=== PATIENT | female | born 1965 | race Caucasian/White ===

== ENCOUNTER 2019-08-05 10:53 | Emergency (ER) | payer BC ==
[~2019-08-05] VITALS: Ht 172.7 cm; Wt 70.9 kg
[~2019-08-05 10:53] MED LIST: CIPROFLOXACN500 MG PO; NORCO1 TA1 PO; ULTRAM50 M1 PO; ZOFRAN ODT4 MG PO
[2019-08-05] MEDS ORDERED: SINGULAIR10 MG PO (12:15)
[2019-08-05] MEDS ORDERED: BREO ELLIPTA1 INH INHW/SPAC (12:18)
[2019-08-05 13:46] VITALS: BP 126/88
== END 2019-08-05 13:46 | disposition home or self-care (01) | DRG 563 ==
LOC: ED 10:53
DX: S93.401A Sprain of unspecified ligament of right ankle, initial encounter (principal); W10.9XXA Fall (on) (from) unspecified stairs and steps, initial encounter; Y92.009 Unspecified place in unspecified non-institutional (private) residence as the place of occurrence of the external cause; J44.9 Chronic obstructive pulmonary disease, unspecified

== ENCOUNTER 2021-08-23 10:05 | Emergency (ER) | payer BC ==
[~2021-08-23] VITALS: Ht 172.7 cm; Wt 71.8 kg
[~2021-08-23 10:05] MED LIST changes: +BREO ELLIPTA1 INH INHW/SPAC; +SINGULAIR10 MG PO
[2021-08-23 11:01] LABS: HEMATOCRIT 38.5 % (37.0-47.0); HEMOGLOBIN 12.7 g/dl (12.0-16.0); IMMATURE GRANULOCYTES 0.2 % (0.0-5.0); MEAN CELL VOLUME 93.7 fL CALC (80.0-100.0); MEAN CORPUSCULAR HGB 30.9 pG CALC (26.0-32.0); NEUT# 2.59 thou/uL (2.00-7.15); RED BLOOD COUNT 4.11 mill/uL (4.20-5.60); RED CELL DISTRI WIDTH 12.2 % (11.5-15.5)
[2021-08-23 11:23] LABS: ALKALINE PHOSPHATASE 65 u/l (38-126); BUN 19 mg/dL (7-17); BUN/CREATININE RATIO 25 (12-20 (CALC)); CHLORIDE 105 mmol/l (95-108); CREATININE 0.8 mg/dL (0.5-1.0); GFR > 60 ML/MIN (>=60 (CALC)); GFR FOR AFR.AMER. > 60 ML/MIN (>=60 (CALC)); POTASSIUM 3.9 mmol/l (3.5-5.1); SGOT/AST 26 u/l (14-36); SODIUM 138 mmol/l (137-146); TOTAL PROTEIN 8.2 g/dL (6.3-8.2)
[2021-08-23 11:24] LABS: ANION GAP 13 (6-22 (CALC)); BILIRUBIN, TOTAL 0.8 mg/dL (0.0-1.4); CARBON DIOXIDE 24 mmol/l (22-30)
[2021-08-23] MEDS ORDERED: PROAIR HFA108 MCG/AC PO (11:59)
[2021-08-23] MEDS ORDERED: DOXYCYC MONO100 M2 PO (11:59)
[2021-08-23] MEDS ORDERED: ZOFRAN4 M1 PO (11:59)
[2021-08-23 12:03] VITALS: BP 129/72
== END 2021-08-23 12:15 | disposition home or self-care (01) | DRG 153 ==
LOC: ED 10:05
PROVIDERS: Family Medicine
DX: J06.9 Acute upper respiratory infection, unspecified (principal); J44.9 Chronic obstructive pulmonary disease, unspecified; Z20.822 Contact with and (suspected) exposure to COVID-19